=== PATIENT | female | born 1945 | race Caucasian/White ===

== ENCOUNTER 2024-06-17 16:08 | Observation (INO) ==
--- NOTE | 2024-06-17 17:15 | Emergency Department Note ---
HPI - Weakness General Chief complaint: Weakness Stated complaint: weakness Time Seen by Provider: 06/17/24 16:49 Source: patient and family Source comment: daughter Mode of arrival: walk-in Limitations: no limitations History of Present Illness HPI Narrative: 78-year-old female presents to ER with complaint of increasing weakness and near syncope after experiencing a near syncopal episode this morning when standing. Patient has history of anemia and is scheduled to have blood transfusion Wednesday after having a type and screen performed on Wednesday. Complaint: Reports generalized weakness Onset (ago): week(s) Duration: Reports constant and progressively worsening Location: Reports generalized Migration: Reports none Severity: moderate Relieving factors: Reports rest Exacerbating factors: Reports movement and exertion Context: Reports history of similar Associated symptoms: Reports easy bruising, myalgias and syncope Related Data Home Medications Medication Instructions Recorded Confirmed baclofen 5 mg tablet 5 mg PO DAILY 01/07/24 01/07/24 cyanocobalamin (vitamin B-12) 1,000 mcg IM MONTHLY 01/07/24 01/07/24 1,000 mcg/mL injection solution ferrous sulfate 325 mg (65 mg 325 mg PO DAILY 01/07/24 01/07/24 iron) tablet (FeroSul) levothyroxine 25 mcg tablet 25 mcg PO QAM 01/07/24 01/07/24 losartan 50 mg tablet 50 mg PO DAILY 01/07/24 01/07/24 montelukast 10 mg tablet 10 mg PO DAILY 01/07/24 01/07/24 omeprazole 40 mg capsule,delayed 40 mg PO QAM 01/07/24 01/07/24 release polymyxin B sulfate 10,000 1 drp ophthalmic (eye) QID 01/07/24 01/07/24 unit-trimethoprim 1 mg/mL eye drops Allergies Allergy/AdvReac Type Severity Reaction Status Date / Time cephalexin (From Keflex) Allergy Mild Verified 06/17/24 16:24 Penicillins Allergy Verified 06/17/24 16:24 sulfamethoxazole (From Allergy Verified 06/17/24 16:24 Bactrim) trimethoprim (From Bactrim) Allergy Verified 06/17/24 16:24 Review of Systems Status of ROS 10 or more systems reviewed and unremark able except as noted in history and below Constitutional Reports: fatigue Cardiovascular Reports: lightheadedness, shortness of breath with exertion and leg pain with exertion Psychiatric Reports: anxiety Hematologic/Lymphatic Reports: easy bruising [facility] Medical History (Updated 01/08/24 @ 12:40 by Lorelei Roper DO) History of uterine cancer Kidney stones Weakness Anemia, iron deficiency, inadequate dietary intake Diabetes mellitus type 2 with complications Hypertension Surgical History (Updated 01/08/24 @ 12:37 by Lorelei Roper DO) History of appendectomy H/O hemorrhoidectomy H/O: hysterectomy Social History Problems where you live: no known problems Highest level of school completed/degree received: high school Feel stressed/tense/nervous/anxious/difficulty sleeping: not at all Life stressor details: n/a Due to disability, difficulty making decisions: Yes Exam Constitutional: normal general appearance, distress noted (moderate), abnormal body habitus (obese), no limitations and alert Vital Signs - 24 hr 06/17/24 16:23 06/17/24 18:00 Temperature 97.9 F Pulse Rate 72 74 Respiratory Rate 18 18 Blood Pressure 128/38 129/44 Pulse Oximetry 98 96 Oxygen Delivery Me thod Room Air Room Air HENMT: normocephalic, head/scalp atraumatic, hearing grossly normal bilaterally, external ears normal, external nose normal, oral mucous membranes normal, oropharynx normal and dentition normal Eyes: PERRL, EOMs intact bilaterally, conjunctivae normal, no scleral icterus, no papilledema, normal visual parra by confrontation, alignment normal, jarad orbital findings normal and no nystagmus Neck/C-Spine: visual inspection normal, trachea midline, cervical spine nontender, cervical full ROM noted and supple Lymph: no lymphadenopathy noted and no lymphedema noted Chest: inspection of chest normal Respiratory: breath sounds equal bilaterally, normal respiratory effort, clear to auscultation bilaterally, no wheezes, no retractions and no use of accessory muscles Cardiovascular: normal heart rate noted, regular rhythm noted, no gallop, no JVD and peripheral pulses 2+ throughout Gastrointestinal: abdomen normal to inspection, abdomen soft to palpation, nontender to palpation, nondistended, normoactive bowel sounds, no hepatosplenomegaly, no masses, no pulsatile mass and no ascites Genitourinary: no CVA tenderness and bladder normal to palpation Back/Pelvis: spine normal to inspection, no thoracic spine tenderness, no lumbar spine tenderness, thoracic spine ROM normal, lumbar spine ROM normal and no paraspinal muscle tenderness noted Extremities: normal to inspection, normal to palpation, no tenderness, full ROM, no joint enlargement and no deformity Neurology: cheese packer II-XII intact, no movement abnormality noted, no focal motor deficit noted, no sensory deficits noted, gait normal, speech normal, coordination normal, no pronator drift noted, no fasciculations noted and GCS normal Psychiatry: Mental Status Exam documented within this Exam's Psych section mental status grossly normal, oriented x3, thought process normal, cooperative, affect normal, psychomotor activity normal and memory normal Feel stressed/tense/nervous/anxious/difficulty sleeping: not at all Life stressor details: n/a Skin: skin color abnormal Reports (pale), no rash, no lesions, no ecchymosis noted, no wounds, no lacerations, skin turgor normal, no jaundice, no petechiae, no mottling, nails normal and no alopecia Course Course Hospital Course: 78-year-old female who presented to ER with complaint of weakness and near syncopal episode with a history of anemia has been evaluated by physical exam, CBC, CMP, urinalysis, EKG, plain film chest x-ray, ferritin level, and total iron-binding capacity with results as noted in charting. Patient is found to be anemic with a hemoglobin of 5.5 and hematocrit of 17.4, patient is dehydrated with elevated BUN and creatinine, and patient is hypoalbuminemic. Patient [facility] be admitted [facility] floor for anemia requiring blood transfusion, hypoalbuminemia, dehydration, near syncope, and generalized weakness. Patient has received 2 units packed red blood cells, normal saline at 75 mL an hour, patient has been pretreated for blood transfusion with Benadryl and Tylenol. Patient will continue to be monitored throughout the night with repeat labs in the morning to assess for anemia reversal. Vital Signs Vital signs: Vital Signs Temperature 97.9 F 06/17/24 16:23 Pulse Rate 72 06/17/24 16:23 Respiratory Rate 18 06/17/24 16:23 Blood Pressure 128/38 06/17/24 16:23 Pulse Oximetry 98 06/17/24 16:23 Oxygen Delivery Method Room Air 06/17/24 16:23 Temperature 97.9 F 06/17/24 16:23 Pulse Rate 74 06/17/24 18:00 Respiratory Rate 18 06/17/24 18:00 Blood Pressure 129/44 06/17/24 18:00 Pulse Oximetry 96 06/17/24 18:00 Oxygen Delivery Method Room Air 06/17/24 18:00 MDM - Weakness MDM Narrative Medical decision making narrative: Medical Decision Making this patient above physical exam, CBC, CMP, total iron- binding capacity, ferritin, urinalysis, EKG, and plain film chest x-ray. Differential Diagnosis Differential diagnosis: Likely anemia, hypoglycemia, hypothyroidism, dehydration and other (Hypoalbuminemia, hypokalemia, Hyponatremia) Medical Records Attestation: I reviewed the patient's medical records. Lab Data Attestation: I reviewed the patient's lab results. Labs: Lab Results 06/17/24 Range/Units 17:00 WBC 8.1 (4.3-9.3) K/uL RBC 1.8 L (4.00-5.50) M/uL Hgb 5.5 L* (12.5-15.8) gm/dL Hct 17.4 L* (35.9-46.7) % MCV 98.1 H (81.0-93.7) fl MCH 31.1 (27.6-32.2) pg MCHC 31.7 L (33.1-35.3) g/dl RDW 16.8 H (11.4-14.2) % Plt Count 365 H (152-353) K/uL MPV 8.4 (6.9-10.8) fl Gran % 77.2 H (47.8-71.3) % Lymph % (Auto) 15.9 L (20.0-43.0) % [place] % (Auto) 4.6 (3.6-9.8) % Eos % (Auto) 1.7 (0.4-2.8) % Baso % (Auto) 0.6 (0.1-0.85) Lymph # (Auto) 1.3 (1.1-3.1) [place] # (Auto) 0.4 L (1.1-3.1) Eos # (Auto) 0.1 (0.0-0.2) Baso # (Auto) 0.1 (0.0-0.1) Absolute Gran (auto) 6.2 H (2.3-6.0) Sodium 141 (136-145) mmol/L Potassium 4.3 (3.6-5.2) mmol/L Chloride 109.0 H (98-107) mmol/L Carbon Dioxide 22 (21-32) mmol/L Anion Gap 10.0 (4-14) mEq/L BUN 41 H (7-18) mg/dL Creatinine 1.5 H (0.6-1.3) mg/dL Estimated GFR 35.7 (>59.9) Glucose 142 H (70-110) mg/dL Calcium 8.5 (8.5-10.1) mg/dL Total Bilirubin 0.22 (0.0-1.0) mg/dL AST 10 L (15-37) U/L ALT 15 L (30-65) U/L Alkaline Phosphatase 65 (50-136) U/L Total Protein 5.0 L (6.4-8.2) g/dL Albumin 2.8 L (3.4-5.0) g/dL Blood Type A Positive Antibody Screen Negative Crossmatch (AHG) See Detail Imaging Data Imaging ordered: Chest x-ray Attestation: I have reviewed the pertinent imaging results. Radiologist's impression: EXAM: XR CHEST 1V HISTORY: dyspneadyspnea; COMPARISON: 01/07/2024 TECHNIQUE: AP portable FINDINGS: Stable cardiac silhouette. No focal consolidation, pleural effusion, or pneumothorax. IMPRESSION: No acute cardiopulmonary findings. THIS IS AN ELECTRONICALLY VERIFIED FINAL REPORT 06/17/2024 6:16 PM - Electronically signed by Isaías House MD ECG Data Attestation: I have reviewed the pertinent ECG results. Interpretation: Sinus rhythm rate 65 Normal P axis PACs RR 932 TX 106 P axis 45 QRS 43 T 11 Discharge Plan Discharge Patient Disposition: Admitted As Observation Condition: Stable Chief Complaint: Weakness Clinical Impression: Anemia, Weakness, Dehydration, Hypoalbuminemia, Near syncope Prescriptions: No Action baclofen 5 mg tablet 5 mg PO DAILY cyanocobalamin (vitamin B-12) 1,000 mcg/mL solution 1,000 mcg IM MONTHLY ferrous sulfate [FeroSul] 325 mg (65 mg iron) tablet 325 mg PO DAILY levothyroxine 25 mcg tablet 25 mcg PO QAM losartan 50 mg tablet 50 mg PO DAILY montelukast 10 mg tablet 10 mg PO DAILY omeprazole 40 mg capsule,delayed release(DR/EC) 40 mg PO QAM polymyxin B sulf-trimethoprim 10,000 unit- 1 mg/mL drops 1 drp OPHTHALMIC (EYE) QID Patient Comments: FOR 4 DAYS Print Language: Belarusian Referrals: Igor Veliz MD [Primary Care Provider] - Time of Disposition: 18:00
[2024-06-17 17:16] LABS: Basophils #(Absolute) Auto 0.1 (0.0-0.1); Eosinophils#(Absolute)Auto 0.1 (0.0-0.2); Eosinophils%(Percent) Auto 1.7 % (0.4-2.8); Granulocytes#(Absolute)- Auto 6.2 (2.3-6.0); Monocytes #(Absolute)- Auto 0.4 (1.1-3.1)
[2024-06-17 17:17] LABS: Basophils%(Percent) Auto 0.6 (0.1-0.85); Granulocytes % - Auto 77.2 % (47.8-71.3); Mean Corpuscular Volume 98.1 fl (81.0-93.7); Monocytes %(Percent)- Auto 4.6 % (3.6-9.8); Platelet Count 365 K/uL (152-353); White Blood Count 8.1 K/uL (4.3-9.3)
[2024-06-17 17:20] LABS: Potassium 4.3 mmol/L (3.6-5.2)
[2024-06-17 17:23] LABS: Hematocrit 17.4 % (35.9-46.7)
[2024-06-17] MEDS ORDERED: 0.9 % SODIUM CHLORIDE 100ML 100 ML IV ONE (18:21)
[2024-06-17] MEDS ORDERED: ACETAMINOPHEN 325 MG TABLET ONE (18:31)
[2024-06-17] MEDS ORDERED: diphenhydrAMINE HCL 25 MG CAP PO ONE (18:31)
[2024-06-17] MEDS: diphenhydrAMINE HCL 25 MG CAP PO ONE (18:45)
[2024-06-17] MEDS: ACETAMINOPHEN 325 MG TABLET PO ONE (18:45)
[2024-06-17] MEDS ORDERED: ONDANSETRON HCL/PF 4 MG/2 ML VIAL INJ PRN (18:56)
[2024-06-17] MEDS ORDERED: DOCUSATE SODIUM 100 MG CAPSULE PO PRN (18:56)
[2024-06-17] MEDS ORDERED: MAGNESIUM, ALUMINUM HYDROXIDE 30 ML ORAL.SUSP PO PRN (18:56)
[2024-06-17] MEDS ORDERED: MORPHINE SULFATE 2 MG/ML CARTRIDGE IV PRN (18:56)
[2024-06-17] MEDS ORDERED: ACETAMINOPHEN 1000 MG/100 ML 1,000 MG/100 ML IV.SOLN IV PRN (19:02)
[2024-06-17] MEDS: 0.9 % SODIUM CHLORIDE 1000 ML 1,000 ML IV SCH (21:03)
[2024-06-17] MEDS: KETOROLAC 30 MG/ML INJ VIAL IVP PRN (23:40)
[2024-06-18 03:42] LABS: Specific Gravity Urine 1.015 (1.001-1.035); Urine Appearance CLEAR (CLEAR); Urine Blood NEGATIVE (NEG - TRACE); Urine Color YELLOW (STRAW/YELL.); Urine Urobilinogen Normal (NORMAL)
[2024-06-18 05:11] LABS: Basophils #(Absolute) Auto 0.1 (0.0-0.1); Eosinophils#(Absolute)Auto 0.4 (0.0-0.2); Eosinophils%(Percent) Auto 5.8 % (0.4-2.8); Granulocytes % - Auto 56.3 % (47.8-71.3); Granulocytes#(Absolute)- Auto 3.6 (2.3-6.0); Mean Corpuscular Volume 95.5 fl (81.0-93.7); Monocytes #(Absolute)- Auto 0.5 (1.1-3.1); Monocytes %(Percent)- Auto 7.4 % (3.6-9.8); Platelet Count 300 K/uL (152-353); White Blood Count 6.4 K/uL (4.3-9.3)
[2024-06-18 05:47] LABS: Potassium 4.1 mmol/L (3.6-5.2)
[2024-06-18 07:45] VITALS: BP 135/41; PULSE 57; RESP 19; TEMP 97.6
--- NOTE | 2024-06-18 08:20 | Discharge Summary ---
DS: Providers Provider Date of admission: 06/17/24 18:56 Primary care physician: Igor Veliz MD Admitting clinician: Jay Franklin Attending physician on admission: Jay Franklin Attending physician on discharge: Day Osman Anticipated date of discharge: 06/18/24 DS: Diagnosis Discharge Diagnosis (1) Weakness: (2) Anemia, iron deficiency, inadequate dietary intake: (3) Diabetes mellitus type 2 with complications: (4) Hypertension: Qualifiers: Hypertension type: primary hypertension Qualified Code(s): I10 - Essential (primary) hypertension Plan Patient had appointment to get blood transfusion on WednesdayJune 20 in [place]. She was told if she started to feel worse to come in to ER to get transfused sooner. She came to ED yesterday with complaints of increasing weakness, HGB 5.5. She was admitted to Observation and administered 1 unit PRBC. Today hgb is 7.6 and patient states she is feeling much better and no longer weak and wants to go home. She has appointment with physician tomorrow and for blood transfusion if needed again on Wednesday. Will discharge home to follow up with her doctor in [place]. DS: Summary Hospital Course Hospital Course: 78-year-old female who presented to ER with complaint of weakness and near syncopal episode with a history of anemia has been evaluated by physical exam, CBC, CMP, urinalysis, EKG, plain film chest x-ray, ferritin level, and total iron-binding capacity with results as noted in charting. Patient is found to be anemic with a hemoglobin of 5.5 and hematocrit of 17.4, patient is dehydrated with elevated BUN and creatinine, and patient is hypoalbuminemic. Patient will be admitted to the [facility] floor for anemia requiring blood transfusion, hypoalbuminemia, dehydration, near syncope, and generalized weakness. Patient has received 2 units packed red blood cells, normal saline at 75 mL an hour, patient has been pretreated for blood transfusion with Benadryl and Tylenol. Patient will continue to be monitored throughout the night with repeat labs in the morning to assess for anemia reversal. Status at Discharge Cognitive/behavioral status at discharge: stable, anemia improved. Overall status at discharge: patient is back to baseline Time Spent with Patient Time attestation: Total time spent providing and/or coordinating discharge services: Time spent: greater than 30 minutes Exam Constitutional: normal general appearance and no apparent distress Vital Signs - 24 hr 06/17/24 16:23 06/17/24 18:00 06/17/24 18:28 Temperature 97.9 F Pulse Rate 72 74 77 Pulse Rate [Right Brachial] Respiratory Rate 18 18 18 Blood Pressure 128/38 129/44 115/28 Blood Pressure [Le ft Arm] Pulse Oximetry 98 96 96 Oxygen Delivery Me thod Room Air Room Air Room Air 06/17/24 18:46 06/17/24 19:35 06/17/24 20:26 Temperature 98.4 F Pulse Rate 66 56 L Pulse Rate [Right Brachial] Respiratory Rate 18 20 Blood Pressure 119/28 135/40 Blood Pressure [Le ft Arm] Pulse Oximetry 96 98 [facility] 06/17/24 20:26 06/17/24 20:27 06/17/24 21:10 Temperature 98.4 F 98.4 F 98.4 F Pulse Rate 56 L 64 Pulse Rate [Right Brachial] 64 Respiratory Rate 18 20 18 Blood Pressure 135/40 127/36 Blood Pressure [Le ft Arm] 127/36 Pulse Oximetry 96 98 96 [facility] 06/17/24 21:25 06/17/24 22:26 06/17/24 23:42 Temperature 98.4 F 98.5 F 97.9 F Pulse Rate 63 74 Pulse Rate [Right Brachial] 63 Respiratory Rate 18 18 16 Blood Pressure 133/44 135/42 Blood Pressure [Le ft Arm] 136/32 Pulse Oximetry 95 97 97 [facility] 06/18/24 07:44 Temperature 97.6 F Pulse Rate Pulse Rate [Right Brachial] 57 L Respiratory Rate 19 Blood Pressure Blood Pressure [Le ft Arm] 135/41 Pulse Oximetry 98 [facility] HENMT: normocephalic and head/scalp atraumatic Eyes: conjunctivae normal (pale conjunctiva) and no scleral icterus Neck/C-Spine: visual inspection normal and trachea midline Lymph: no lymphadenopathy noted Chest: inspection of chest normal Respiratory: breath sounds equal bilaterally, normal respiratory effort, clear to auscultation bilaterally, no wheezes, no rales, no retractions and no use of accessory muscles Cardiovascular: normal heart rate noted and regular rhythm noted Gastrointestinal: abdomen normal to inspection, abdomen soft to palpation and normoactive bowel sounds Genitourinary: deferred Extremities: normal to inspection and normal to palpation +1 edema bilaterally Neurology: no movement abnormality noted, no focal motor deficit noted, no sensory deficits noted, speech normal, coordination normal and no fasciculations noted Psychiatry: mental status grossly normal, oriented x3, thought process normal, cooperative, affect normal and memory normal Skin: skin color normal, no rash and no lesions DS: Data Data Completed and Pending Labs on day of discharge: Labs from last 24 hours 06/18/24 06/18/24 06/17/24 04:30 02:30 17:00 WBC 6.4 8.1 RBC 2.4 L 1.8 L Hgb 7.6 L 5.5 L* Hct 23.0 L* 17.4 L* MCV 95.5 H 98.1 H MCH 31.7 31.1 MCHC 33.2 31.7 L RDW 15.5 H 16.8 H Plt Count 300 365 H MPV 8.7 8.4 Gran % 56.3 77.2 H Lymph % (Auto) 29.5 15.9 L [place] % (Auto) 7.4 4.6 Eos % (Auto) 5.8 H 1.7 Baso % (Auto) 1.0 H 0.6 Lymph # (Auto) 1.9 1.3 [place] # (Auto) 0.5 L 0.4 L Eos # (Auto) 0.4 H 0.1 Baso # (Auto) 0.1 0.1 Absolute Gran (auto) 3.6 6.2 H Sodium 143 141 Potassium 4.1 4.3 Chloride 112.0 H 109.0 H Carbon Dioxide 24 22 Anion Gap 7.0 10.0 BUN 43 H 41 H Creatinine 1.4 H 1.5 H Estimated GFR 38.8 35.7 Glucose 101 142 H Calcium 8.4 L 8.5 Magnesium 1.9 TIBC 297 Ferritin 15 Total Bilirubin 0.56 0.22 AST 13 L 10 L ALT 14 L 15 L Alkaline Phosphatase 62 65 Total Protein 4.6 L 5.0 L Albumin 2.5 L 2.8 L Urine Color Yellow Urine Appearance Clear Ur Specific [place] 1.015 Urine Protein Negative Urine Glucose (UA) Normal Urine Ketones Negative Urine Occult Blood Negative Urine Nitrite Negative Urine Bilirubin Negative Urine Urobilinogen Normal Ur Leukocyte Esterase Negative Fluid pH 6.0 Blood Type A Positive Antibody Screen Negative Crossmatch (AHG) See Detail Discharge Plan Discharge Disposition: Home, Self-Care Condition: Stable Discharge Medications: Continued baclofen 5 mg tablet 5 mg PO DAILY cyanocobalamin (vitamin B-12) 1,000 mcg/mL solution 1,000 mcg IM MONTHLY ferrous sulfate [FeroSul] 325 mg (65 mg iron) tablet 325 mg PO DAILY levothyroxine 25 mcg tablet 25 mcg PO QAM losartan 50 mg tablet 50 mg PO DAILY montelukast 10 mg tablet 10 mg PO DAILY omeprazole 40 mg capsule,delayed release(DR/EC) 40 mg PO QAM polymyxin B sulf-trimethoprim 10,000 unit- 1 mg/mL drops 1 drp OPHTHALMIC (EYE) QID Patient Comments: FOR 4 DAYS Discharge Orders: Discharge Order (Routine); Ordered 06/18/24 Ordered By: Dya Osman Activity Detail: as tolerated Diet: advance to your usual diet Interventions: Discharge Assessment Last Done: 06/18/24 08:20 Forms: Portal/Health Info Access Inst Follow-Ups: Igor Veliz MD [Primary Care Provider] - Discharge Comment: Follow up with your doctor as scheduled.
[2024-06-18] MEDS ORDERED: PANTOPRAZOLE SODIUM 40 MG TABLET.DR PO SCH (09:00)
== END 2024-06-18 09:27 | disposition home or self-care (01) ==
LOC: MS 16:08 → ED 16:08 → MS 19:35
PROVIDERS: ADMIT Nurse Practitioner Family; ATTEND Nurse Practitioner Family
DX: Z88.0 Allergy status to penicillin; D50.8 Other iron deficiency anemias; Z88.2 Allergy status to sulfonamides; Z88.1 Allergy status to other antibiotic agents; E88.09 Other disorders of plasma-protein metabolism, not elsewhere classified; I10 Essential (primary) hypertension; Z79.899 Other long term (current) drug therapy; E11.8 Type 2 diabetes mellitus with unspecified complications; Z79.890 Hormone replacement therapy; E86.0 Dehydration